=== PATIENT | female | born 1960 | race Caucasian/White ===

== ENCOUNTER 2018-03-02 22:04 | Emergency (ER) | payer MEDICAID ==
[~2018-03-02] VITALS: Ht 177.8 cm; Wt 68.0 kg
[2018-03-02] MEDS ORDERED: morphine 4 MG/ML inj SYRINge IV ONE (22:30)
[2018-03-02] MEDS ORDERED: ondansetron/PF 4mg/2ml inj IV ONE (22:30)
[2018-03-02] MEDS ORDERED: bacitracin 15gm ointment TP ONE (23:00)
[2018-03-02] MEDS ORDERED: TETanus/Pertussis (Acell)/Diphther VAC/PF (Tdap-Adult) 0.5ml syringe IM ONE (23:00)
[2018-03-02] MEDS ORDERED: proCHLORperazine 10 MG/2 ml inj IV ONE (23:05)
[2018-03-02] MEDS ORDERED: HYDR-3965 PO (23:06)
[2018-03-02] MEDS ORDERED: ONDA8TAB9 PO (23:06)
[2018-03-02] MEDS ORDERED: ketorolac trometh. 30mg/ml inj. IV ONE (23:10)
[2018-03-02 23:11] VITALS: BP 142/84
== END 2018-03-02 23:23 | disposition home or self-care (01) ==
LOC: ER 22:04
DX: S06.0X0A Concussion without loss of consciousness, initial encounter (principal); S00.03XA Contusion of scalp, initial encounter; S50.312A Abrasion of left elbow, initial encounter; V80.010A Animal-rider injured by fall from or being thrown from horse in noncollision accident, initial encounter; Y93.52 Activity, horseback riding; Y92.89 Other specified places as the place of occurrence of the external cause; Y99.9 Unspecified external cause status
CPT/HCPCS: 70450; 72125; 73080; 90471; 90715; 96374; 96375; 99284; A4565; A6449; J0780; J1885; J2270; J2405; 29105